=== PATIENT | female | born 1985 | race Caucasian/White ===

== ENCOUNTER 2017-07-14 10:02 | Emergency (ER) | payer OTHER ==
[2017-07-14 10:26] VITALS: O2SAT 100
[2017-07-14] MEDS ORDERED: TORAdol 30 mg Injection IV ONE (10:27)
--- NOTE | 2017-07-14 10:30 | ERPHSYRPT ---
- History of Present Illness Time Seen by Provider: 07/14/17 10:28 Historian: patient Patient Subjective Stated Complaint: right lateral rib pain for three days. denies injury Triage Nursing Assessment: ambulated to room per self. holding and guarding right lateral rib area. tender to touch. no swelling or deformity noted at this time. no bruising noted. Physician History: mild to mod ache pain of the right chest wall today after lifting and bending, o /w no injury, hx smoking, pleuritic pain, rad to back, no rash, no fever Aspirin Treatment Today: no aspirin today Allergies/Adverse Reactions: latex Allergy (Intermediate, Verified 05/03/15 10:31) Hives Penicillins Allergy (Intermediate, Verified 05/03/15 10:31) Hives nortriptyline Allergy (Verified 07/14/17 10:13) Home Medications: Topiramate 100 mg [Topamax 100 MG] 100 mg PO HS 03/25/12 [History] Sumatriptan Succinate [Imitrex] 100 mg PO UD 05/03/15 [History] Baclofen 10 mg [Lioresal 10 mg] 10 mg PO TID 07/14/17 [History] Dextroamphetamine/Amphetamine [Adderall 20 mg Tablet] 20 mg PO BID 07/14/17 [ History] Duloxetine HCl [Cymbalta] 60 mg PO DAILY 07/14/17 [History] Meloxicam 15 mg [Meloxicam 15 MG] 15 mg PO UD 07/14/17 [History] Tapentadol HCl [Nucynta] 75 mg PO TID 07/14/17 [History] Hx Tetanus, Diphtheria Vaccination/Date Given: No Hx Influenza Vaccination/Date Given: Yes Hx Pneumococcal Vaccination/Date Given: No - Review of Systems Constitutional: No Fever Eyes: No Eye Redness Ears, Nose, & Throat: No Mouth Pain Respiratory: Cough, No Dyspnea Cardiac: Chest Pain Abdominal/Gastrointestinal: No Abdominal Pain Genitourinary Symptoms: No Dysuria Musculoskeletal: Back Pain, No Neck Pain Neurological: No Dizziness - Past Medical History Pertinent Past Medical History: Yes Neurological History: Migraines, Other Cardiac History: Hypertension Respiratory History: Asthma Endocrine Medical History: Other Musculoskeletal History: Arthritis Psycho-Social History: Anxiety Female Reproductive Disorders: Other Other Medical History: PITUITARY GLAND TUMOR - Past Surgical History Past Surgical History: Yes Musculoskeletal: Orthopedic Surgery Female Surgical History: Tubal Ligation Other Surgical History: TONSILECTOMY - Social History Smoking Status: Current every day smoker How long have you smoked: 6 Exposure to second hand smoke: No Drug Use: none Patient Lives Alone: No - Female History Hx Last Menstrual Period: 06/11/17 Hx Now: No - Nursing Vital Signs Nursing Vital Signs: Initial Vital Signs Temperature 97.8 F 07/14/17 10:11 Pulse Rate 93 H 07/14/17 10:11 Respiratory Rate 16 07/14/17 10:11 Blood Pressure 108/76 07/14/17 10:11 O2 Sat by Pulse Oximetry 100 07/14/17 10:11 Pain Scale Pain Intensity 7 - Physical Exam General Appearance: no apparent distress Eye Exam: eyes nml inspection Ears, Nose, Throat Exam: moist mucous membranes Neck Exam: normal inspection Respiratory Exam: normal breath sounds, chest tenderness Cardiovascular Exam: regular rate/rhythm Gastrointestinal/Abdomen Exam: soft, No tenderness Back Exam: normal inspection, CVA tenderness Extremity Exam: normal inspection, normal range of motion Neurologic Exam: alert, oriented x 3, cooperative Skin Exam: warm, dry SpO2 Interpretation: normal SpO2: 100 Oxygen Delivery: Room Air - Course Nursing assessment & vital signs reviewed: Yes EKG Interpreted by Me: Other (nsr 79, no stemi) - Radiology Exams Chest X-ray Interpretation: Discussed w/ radiologist, Negative - CT Exams Chest CT Interpretation: Discussed w/radiologist, Other (no PE, +lymph nodes, no fx, no pneumothorax) Ordered Tests: Active Orders 24 hr Category Date Time Status EKG-ER Only STAT Care 07/14/17 10:25 Active IV Insertion STAT Care 07/14/17 10:42 Active CHEST 2 VIEWS (PA AND LAT) Stat Exams 07/14/17 10:25 Completed CHEST WITH CONTRAST [CT] Stat Exams 07/14/17 12:15 Completed CULTURE,URINE Stat Lab 07/14/17 12:15 Received D-DIMER QUANTITATION Stat Lab 07/14/17 10:44 Completed HCG QUALITATIVE,SERUM Stat Lab 07/14/17 10:44 Completed TROPONIN Q3H Lab 07/14/17 10:44 Completed TROPONIN Q3H Lab 07/14/17 13:30 Ordered TROPONIN Q3H Lab 07/14/17 16:30 Ordered TROPONIN Q3H Lab 07/14/17 19:30 Ordered TROPONIN Q3H Lab 07/14/17 22:30 Ordered UA W/ MICROSCOPIC Stat Lab 07/14/17 12:15 Completed Medication Summary Discontinued Medications Generic Name Dose Route Start Last Admin Trade Name Jana PRN Reason Stop Dose Admin Ketorolac Tromethamine 30 mg 07/14/17 10:27 07/14/17 10:53 Toradol 30 Mg Injection IV 07/14/17 10:28 30 mg STAT ONE Administration Ketorolac Tromethamine Confirm 07/14/17 10:51 Toradol 30 Mg Injection Administered 07/14/17 10:52 Dose 30 mg .ROUTE .STK-MED ONE Lab/Rad Data: Laboratory Results 07/14/17 07/14/17 07/14/17 Range/Units 12:15 10:44 10:44 D-Dimer (215-500) ng/mL Troponin I < 0.012 (0.000-0.034) ng/mL Serum , Qual NEGATIVE (Negative) Ur Collection Type VOID Urine Color YELLOW (YELLOW) Urine Appearance CLEAR (CLEAR) Urine pH 5.0 (5-6) Ur Specific [place] 1.015 (1.005-1.025) Urine Protein NEGATIVE (Negative) Urine Ketones NEGATIVE (NEGATIVE) Urine Blood 5-10 (0-5) Alvarez/ul Urine Nitrite NEGATIVE (NEGATIVE) Urine Bilirubin NEGATIVE (NEGATIVE) Urine Urobilinogen NORMAL (0-1) mg/dL Ur Leukocyte Esterase TRACE (NEGATIVE) Urine Microscopic RBC 0-2 (0-2) /HPF Urine Microscopic WBC 0-2 (0-5) /HPF Ur Epithelial Cells FEW (FEW) /HPF Urine Bacteria RARE (NEGATIVE) /HPF Urine Culture Reflexed YES (NO) Urine Glucose NEGATIVE (NEGATIVE) mg/dL Specimen Received 07/14/17 1220 07/14/17 Range/Units 10:44 D-Dimer 747 H* (215-500) ng/mL Troponin I (0.000-0.034) ng/mL Serum , Qual (Negative) Ur Collection Type Urine Color (YELLOW) Urine Appearance (CLEAR) Urine pH (5-6) Ur Specific [place] (1.005-1.025) Urine Protein (Negative) Urine Ketones (NEGATIVE) Urine Blood (0-5) Alvarez/ul Urine Nitrite (NEGATIVE) Urine Bilirubin (NEGATIVE) Urine Urobilinogen (0-1) mg/dL Ur Leukocyte Esterase (NEGATIVE) Urine Microscopic RBC (0-2) /HPF Urine Microscopic WBC (0-5) /HPF Ur Epithelial Cells (FEW) /HPF Urine Bacteria (NEGATIVE) /HPF Urine Culture Reflexed (NO) Urine Glucose (NEGATIVE) mg/dL Specimen Received - Progress Progress: improved Air Movement: good Progress Note: 07/14/17 13:18 differential d/w pt as cancer Counseled pt/family regarding: lab results, diagnosis, need for follow-up, rad results - Departure Time of Disposition: 13:19 Departure Disposition: Home Clinical Impression: Chest wall discomfort Condition: Stable Critical Care Time: No Referrals: JUAN ANDUJAR MD [Primary Care Provider] - Instructions: Bruised Rib Additional Instructions: see your doctor, rest, motrin, ice, return if worse
[2017-07-14] MEDS ORDERED: TORAdol 30 mg Injection ONE (10:51)
--- NOTE | 2017-07-14 11:41 | XRAY ---
Indication: Short of breath. Right-sided pain/bruising. No known injury. Comparison: March 25, 2012. PA/lateral chest again demonstrates normal heart, lungs, and bony thorax.
[2017-07-14 12:40] LABS: Appearance CLEAR (CLEAR); Bilirubin NEGATIVE (NEGATIVE); Glucose NEGATIVE (NEGATIVE); Ketones NEGATIVE (NEGATIVE); Leukocyte Esterase TRACE (NEGATIVE); Nitrite NEGATIVE (NEGATIVE); Protein,Urine Dip NEGATIVE (Negative); Specific Gravity 1.015 (1.005-1.025); Urobilinogen NORMAL mg/dL (0-1)
[2017-07-14 12:41] LABS: Bacteria RARE /HPF (NEGATIVE); Epithelial Cells FEW /HPF (FEW); RBC 0-2 /HPF (0-2); WBC 0-2 /HPF (0-5)
--- NOTE | 2017-07-14 13:08 | XRAY ---
Indication: Right-sided pain and bruising. No known injury. Short of breath. Asthma. Multiple contiguous axial images obtained through the chest using 80 cc Isovue 370 contrast and PE protocol. Comparison: None There is satisfactory opacification of the pulmonary arteries to include the lobar and segmental branches. No filling defect or pulmonary embolus. Heart is not enlarged. Aorta is normal in course and caliber. 1.5 x 2.0 cm prominent subcarinal lymph node. No pathologic hilar/axillary lymphadenopathy. Examination of the lung parenchyma demonstrates mild bilateral dependent atelectasis. No suspicious pulmonary mass, infiltrate, or effusion. Bony thorax intact. Limited upper abdomen demonstrates mild fatty liver and 12.5 cm borderline splenomegaly. Impression: 1. Negative pulmonary embolus. No acute cardiopulmonary abnormalities. 2. Nonspecific prominent subcarinal lymph node. 3. Incidental fatty liver and borderline splenomegaly. CT DI 17.45
[2017-07-14 13:46] VITALS: BP 124/79; PULSE 72
== END 2017-07-14 13:50 | disposition home or self-care (01) ==
LOC: ED 10:02
DX: R07.89 Other chest pain (principal); M54.9 Dorsalgia, unspecified; Z79.899 Other long term (current) drug therapy; R07.81 Pleurodynia
CPT/HCPCS: 36000; 36415; 71046; 71260; 80053; 81000; 82306; 82607; 84484; 84703; 85025; 85379; 87086; 93005; 96374; 99284; J1885

== ENCOUNTER 2018-12-11 17:55 | Emergency (ER) | payer OTHER ==
[2018-12-11 18:13] VITALS: O2SAT 100
[2018-12-11] MEDS ORDERED: Vibramycin 100 MG PO ONE (18:16)
[2018-12-11] MEDS ORDERED: Vibramycin 100 MG ONE (18:24)
--- NOTE | 2018-12-11 18:58 | ERPHSYRPT ---
- History of Present Illness Time Seen by Provider: 12/11/18 18:05 Source: patient Exam Limitations: no limitations Patient Subjective Stated Complaint: Pt has a lump where her ear ring goes on her left ear, she had went to a piano professor and they thought it was a cyst an injected it with a steroid, pt states that she feels it move from her outer ear to where her ear connects to her head, she took a bath in tea tree oil and it made it feel like it was boiling, she immediately washed it off with Dial soap, she stated that her inside of her ear had began to swell and she was finding it hard to hear Triage Nursing Assessment: Pt walks into the ER, hypertensive, tachycardic, pulses normal, rates pain 3/10, doesn't appear to be in any distress Physician History: Patient has been dealing with external ear issues and skin lesions for the past 2.5 months after visiting family in the hospital. She was treated by a piano professor in the past, but her ear began bothering her for the past one week , causing her not to hear as well. She has not been seen or treated by anone over the past week. Timing/Duration: gradual onset, days Severity: moderate ENT Location: ear (L) Prearrival Treatment: no prearrival treatment Modifying Factors: Improves With: nothing Associated Symptoms: ear pain (L), change in hearing, hearing loss, No ear pain (R), No cough, No fever, No chills, No dizziness, No drooling, No ear drainage, No facial pain/swelling, No headache, No jaw pain, No malaise, No motion sickness, No nasal congestion/drainage, No epistaxis, No nasal foreign body, No neck pain, No poor fluid intake, No poor solids intake, No ringing of ears, No swollen glands, No sinus infection, No sore throat, No tooth pain, No difficulty swallowing, No voice change Allergies/Adverse Reactions: latex Allergy (Intermediate, Verified 12/11/18 18:13) Hives Penicillins Allergy (Intermediate, Verified 12/11/18 18:13) Hives nortriptyline Allergy (Verified 12/11/18 18:13) Home Medications: Topiramate 100 mg [Topamax 100 MG] 200 mg PO HS 03/25/12 [History] Sumatriptan Succinate [Imitrex] 100 mg PO UD 05/03/15 [History] Baclofen 10 mg [Lioresal 10 mg] 20 mg PO TID 07/14/17 [History] Dextroamphetamine/Amphetamine [Adderall 20 mg Tablet] 20 mg PO BID 07/14/17 [ History] Duloxetine HCl [Cymbalta] 60 mg PO DAILY 07/14/17 [History] Meloxicam 15 mg [Meloxicam 15 MG] 15 mg PO UD 07/14/17 [History] Tizanidine HCl 4 mg PO HS 12/11/18 [History] Hx Tetanus, Diphtheria Vaccination/Date Given: No Hx Influenza Vaccination/Date Given: Yes Hx Pneumococcal Vaccination/Date Given: No - Review of Systems Constitutional: No Fever, No Chills Eyes: No Eye Pain, No Vision Changes Ears, Nose, & Throat: Ear Pain, No Nose Pain, No Mouth Pain, No Loose Teeth, No Throat Pain, No Painful Swallowing Respiratory: No Cough, No Dyspnea Cardiac: No Chest Pain Abdominal/Gastrointestinal: No Abdominal Pain, No Nausea, No Vomiting, No Hematemesis, No Hematochezia, No Melena Genitourinary Symptoms: No Dysuria, No Frequency, No Hematuria, No Flank Pain Musculoskeletal: No Back Pain, No Neck Pain Skin: Skin Lesions, No Pruritis, No Rash Neurological: No Focal Weakness, No Lethargy, No Parasthesia, No Tremors Psychological: No Anxiety, No Mood Changes Hematologic/Lymphatic: No Easy Bleeding, No Easy Bruising All Other Systems: Reviewed and Negative - Past Medical History Pertinent Past Medical History: Yes Neurological History: Migraines, Other Cardiac History: Hypertension Respiratory History: Asthma Endocrine Medical History: Other Musculoskeletal History: Arthritis Psycho-Social History: Anxiety Female Reproductive Disorders: Other Other Medical History: PITUITARY GLAND TUMOR - Past Surgical History Past Surgical History: Yes Musculoskeletal: Orthopedic Surgery Female Surgical History: Tubal Ligation Other Surgical History: TONSILECTOMY - Social History Smoking Status: Current every day smoker How long have you smoked: 6 Exposure to second hand smoke: Yes Drug Use: none Patient Lives Alone: No - Female History Hx Last Menstrual Period: unsure Hx Now: No - Nursing Vital Signs Nursing Vital Signs: Initial Vital Signs Temperature 98.5 F 12/11/18 18:01 Pulse Rate 98 H 10/20/19 18:01 Blood Pressure 161/109 10/20/19 18:01 O2 Sat by Pulse Oximetry 100 12/11/18 18:01 Pain Scale Pain Intensity 4 - Physical Exam General Appearance: no apparent distress Eye Exam: bilateral eye: normal inspection, PERRL, EOMI Ear Exam: right ear: auricle normal, left ear: tenderness (left auricle on the lower outer with mild tenderness, no drainage, no swelling), bilateral ear: canal normal, TM normal Nasal Exam: normal inspection, No active bleeding, No discharge Throat Exam: normal, pharynx normal, No excessive drooling, No foreign body, No mandibular swelling, No maxillary swelling, No pharynx swelling, No tongue swollen, No tonsillar exudate, No uvula swelling Neck Exam: normal inspection, non-tender, supple, full range of motion, trachea midline, No JVD, No lymphadenopathy (L), No stiff neck, No Brudzinski's sign Cardiovascular/Respiratory Exam: chest non-tender, normal breath sounds, regular rate/rhythm, heart sounds normal, no JVD, no M/R/G, no respiratory distress Abdominal Exam: non-tender, soft, no organomegaly, No guarding, No tenderness Neurologic Exam: alert, oriented x 3, cooperative, shell machine operator II-XII nml as tested, normal mood/affect Skin Exam: normal color, warm, dry, No rash, No petechiae, No cyanosis SpO2 Interpretation: normal SpO2: 100 O2 Delivery: Room Air - Course Nursing assessment & vital signs reviewed: Yes Ordered Tests: Medication Summary Discontinued Medications Generic Name Dose Route Start Last Admin Trade Name Jana PRN Reason Stop Dose Admin Doxycycline Hyclate 100 mg 12/11/18 18:16 12/11/18 18:29 Vibramycin 100 Mg PO 12/11/18 18:17 100 mg STAT ONE Administration Doxycycline Hyclate Confirm 12/11/18 18:24 Vibramycin 100 Mg Administered 12/11/18 18:25 Dose 100 mg .ROUTE .STK-MED ONE - Departure Departure Disposition: Home Clinical Impression: Cellulitis of helix of left ear Hypertension Qualifiers: Hypertension type: essential hypertension Qualified Code(s): I10 - Essential ( primary) hypertension Condition: Good Critical Care Time: No Referrals: JUAN ANDUJAR MD [Primary Care Provider] - 12/12/18 (call your Tools Developer on 12/12/2018 to follow-up your ear issues) Instructions: Eczema (Atopic Dermatitis), Cellulitis (Skin Infection), Adult ( DC) Additional Instructions: Its important to follow-up with your piano professor who treated your ear in the past. Make certain to discuss treatment for early skin infection of the ear started today. Return immediately if any worse pain, swelling, redness, fever or any spreading of symptoms for immediate evaluation in the emergency department. Prescriptions: Doxycycline Hyclate 100 mg [Vibramycin 100 MG] 100 mg PO BID #20 tab
[2018-12-11 19:06] VITALS: BP 136/94; PULSE 86
== END 2018-12-11 19:05 | disposition home or self-care (01) ==
LOC: ED 17:55
DX: H60.12 Cellulitis of left external ear (principal); I10 Essential (primary) hypertension
CPT/HCPCS: 99283; A9270-GY